=== PATIENT | male | born 2000 | race African-American/Black ===

== ENCOUNTER 2022-06-28 16:40 | Emergency (ER) | payer SELFPAY | END 2022-06-28 17:45 | disposition home or self-care (01) | LOC: NAV ERS 16:40 | DX: R42 Dizziness and giddiness (principal) | CPT/HCPCS: 99283 ==

== ENCOUNTER → 2022-09-05 | Emergency (ER) | payer SELFPAY | LOC: NAV ERS 19:35 | DX: Z53.21 Procedure and treatment not carried out due to patient leaving prior to being seen by health care provider (principal) ==